=== PATIENT | male | born 1965 ===

== ENCOUNTER 2022-04-29 23:48 | Emergency (ER) | payer SELFPAY ==
[2022-04-30 00:07] VITALS: BP 118/90
== END 2022-04-30 09:05 | disposition left against medical advice (07) ==
LOC: ED 23:48
DX: Z13.30 Encounter for screening examination for mental health and behavioral disorders, unspecified (principal); Z53.21 Procedure and treatment not carried out due to patient leaving prior to being seen by health care provider